=== PATIENT | female | born 1980 | race Two or more races ===

== ENCOUNTER 2021-06-01 13:09 | Emergency (ER) | payer OTHER ==
[~2021-06-01] VITALS: Ht 162.6 cm; Wt 72.6 kg
[2021-06-01] MEDS ORDERED: AVAPRO300 MG PO (13:21)
[2021-06-01] MEDS ORDERED: VASOTEC5 MG PO (13:22)
[2021-06-01] MEDS ORDERED: COZAAR25 MG PO (13:22)
[2021-06-01] MEDS ORDERED: RELPAX20 MG PO (17:26)
== END 2021-06-01 18:32 ==
LOC: ER 13:09
DX: I10 Essential (primary) hypertension (principal); G44.89 Other headache syndrome

== ENCOUNTER 2023-06-24 06:06 | Emergency (ER) | payer OTHER ==
[~2023-06-24] VITALS: Ht 162.6 cm; Wt 61.2 kg
[~2023-06-24 06:06] MED LIST: AVAPRO300 MG PO; COZAAR25 MG PO; RELPAX20 MG PO; VASOTEC5 MG PO
== END 2023-06-24 10:43 | disposition home or self-care (01) ==
LOC: ER 06:06
DX: R10.9 Unspecified abdominal pain (principal); I10 Essential (primary) hypertension; M32.8 Other forms of systemic lupus erythematosus

== ENCOUNTER 2023-07-30 09:30 | Outpatient (CLI) | payer OTHER | END 2023-07-30 09:40 | disposition home or self-care (01) | LOC: PPH VACUNA 09:30 | PROVIDERS: ATTEND Emergency Medicine Pediatric Emergency Medicine | DX: Z23 Encounter for immunization (principal) ==

== ENCOUNTER → 2024-01-16 | Emergency (ER) | payer OTHER ==
[~2024-01-16] VITALS: Ht 167.6 cm; Wt 68.0 kg
[~2024-01-16] MED LIST changes: +ATACAND4 MG; +DEXAMETHASONE SODIUM PHOSPHATE 4 MG/ML VIAL IM STA; +PLAQUENIL
[2024-01-16 12:16] LABS: PH,URINE 5.5 (5.0-8.0); URINE APPEARANCE Cloudy; URINE BILIRRUBIN Negative (NEGATIVE); URINE BLOOD Negative; URINE COLOR Yellow; URINE GLUCOSE Negative (NEGATIVE); URINE LEUKOCYTE Negative; URINE NITRATE Negative; URINE PROTEIN Trace (NEGATIVE); URINE UROBILINOGEN 0.2 E.U./dl
[2024-01-16 12:17] LABS: URINE BACTERIA 1542.2 uL (0.0-1933); URINE EPITHELIAL CELLS 40.3 uL (0.0-38.8); URINE RBC 27.3 uL (0.0-20.8); URINE WBC 13.7 uL (0.0-23.2)
[2024-01-16 12:26] LABS: HEMATOCRIT 39.5 % (36.0-45.00); HEMOGLOBIN 13.2 g/dL (12.0-15.00); MEAN CELL VOLUME 83.3 fL (80.00-100.00); MEAN CORPUSCULAR HEMOGLOBIN 27.9 pg (27.00-32.0); MEAN CORPUSCULAR HGB CONC 33.5 g/dl (32.0-36.0); PLATELET COUNT 220 K/uL (150-450); RED BLOOD COUNT 4.74 M/uL (4.00-6.00); RED CELL DISTRIBUTION WIDTH 14.9 % (11.5-14.5)
[2024-01-16 12:44] LABS: ERYTHROCYTE SEDIMENTATION RATE 28 mm/hr
[2024-01-16 12:50] LABS: CALCIUM 9.3 mg/dL (8.5-10.1); CREATININE SERUM 0.48 mg/dL (0.55-1.02); GFR 141.83; POTASSIUM 3.85 mEq/L (3.5-5.1)
[2024-01-16 12:51] LABS: C-REACTIVE PROTEIN 1.73 MG/DL (0.00-0.29)
== END | disposition home or self-care (01) ==
LOC: ER 10:50
PROVIDERS: General Practice
DX: R50.9 Fever, unspecified (principal); Z20.822 Contact with and (suspected) exposure to COVID-19